=== PATIENT | female | born 1965 | race Caucasian/White ===

== ENCOUNTER 2020-09-24 14:50 | Outpatient (REF) | payer OTHER, SELFPAY ==
[2020-09-25 00:02] LABS: ALT 21 U/L (14-59); AST 15 U/L (15-37); Albumin 4.1 g/dL (3.4-5.0); Alkaline Phosphatase 65 U/L (46-116); Anion Gap 10.4 mmol/L (3-11); BUN 14 mg/dL (7-18); Bilirubin, Total 0.3 mg/dL (0.2-1.0); CO2 26.6 mmol/L (21.0-32.0); CREATININE 0.78 mg/dL (0.55-1.02); Calcium 8.9 mg/dL (8.5-10.1); Calculated LDL 147 mg/dL (<100); Chloride 105 mmol/L (98-107); Cholesterol 227 mg/dL (<200); Glucose 67 mg/dL (74-106); HDL Cholesterol 66 mg/dL (40-60); Magnesium 2.2 mg/dL (1.8-2.4); Potassium 3.9 mmol/L (3.5-5.1); Sodium 142 mmol/L (136-145); TSH (W/Ref FT4) 0.71 uIU/mL (0.36-3.74); Triglyceride 70 mg/dL (<150); Vitamin B12 550 pg/mL (193-986)
== END 2020-09-24 15:10 ==
LOC: NCHCN 14:50
PROVIDERS: PCP Family Medicine; Visit Provider Nurse Practitioner Family
DX: R25.2 Cramp and spasm (principal); Z00.00 Encounter for general adult medical examination without abnormal findings; Z12.11 Encounter for screening for malignant neoplasm of colon; Z12.12 Encounter for screening for malignant neoplasm of rectum
CPT/HCPCS: 80053; 80061; 82607; 83735; 84443

== ENCOUNTER 2021-08-05 10:27 | Outpatient (REF) | payer OTHER, SELFPAY ==
[2021-08-05 20:59] LABS: Abs Immature Grans 0.01 10^3/uL (0.0-0.06); Absolute Basophil Count 0.04 10^3/uL (0.0-0.2); Absolute Eosinophil Count 0.05 10^3/uL (0.0-0.7); Absolute Lymphocyte Count 2.17 10^3/uL (1.2-3.4); Absolute Monocyte Count 0.55 10^3/uL (0.1-0.8); Absolute Neutrophil Count 4.26 10^3/uL (1.2-6.7); Basophils % 0.6; Eosinophils % 0.7; HCT 45.6 % (36.0-46.0); HGB 14.7 g/dL (11.2-15.7); Immature Grans % 0.1; Lymphocytes % 30.6; MCHC 32.2 % (32.0-36.0); MCV 93.1 fL (80-95); Monocytes % 7.8; Neutrophils % 60.2; Nucleated RBC 0 %; Platelet Count 211 10^3/uL (130-400); RDW 12.4 % (11.7-14.6); WBC 7.08 10^3/uL (4.4-10.8)
[2021-08-05 21:24] LABS: TSH (W/Ref FT4) 0.69 uIU/mL (0.36-3.74)
[2021-08-05 22:17] LABS: Hemoglobin A1C 5.2 % (<5.7)
== END 2021-08-05 10:28 | disposition home or self-care (01) ==
LOC: NCHCN 10:27
PROVIDERS: PCP Family Medicine; Visit Provider Registered Nurse
DX: R53.83 Other fatigue (principal); Z13.1 Encounter for screening for diabetes mellitus; Z83.3 Family history of diabetes mellitus
CPT/HCPCS: 83036; 84443; 85025

== ENCOUNTER 2024-07-03 09:46 | Outpatient (REF) | payer OTHER, SELFPAY ==
[2024-07-03 14:54] LABS: HCT 46.2 % (36.0-46.0); HGB 15.1 g/dL (11.2-15.7); MCH 29.4 pg (27.0-33.0); MCHC 32.7 % (32.0-36.0); MCV 90 fL (80-95); MPV 11.9 fL (8.0-11.0); Platelet Count 210 10^3/uL (130-400); RBC 5.14 10^6/uL (3.93-5.22); RDW 11.8 % (11.7-14.6); RDW-SD 38.8 fL; WBC 5.65 10^3/uL (4.4-10.8)
[2024-07-03 15:48] LABS: ALT 34 U/L (14-59); AST 18 U/L (15-37); Albumin 4.2 g/dL (3.4-5.0); Alkaline Phosphatase 58 U/L (46-116); Anion Gap 7.4 mmol/L (3-11); BUN 11 mg/dL (7-18); Bilirubin, Total 0.51 mg/dL (0.2-1.0); CO2 29.6 mmol/L (21.0-32.0); CREATININE 0.9 mg/dL (0.55-1.02); Calcium 9.9 mg/dL (8.5-10.1); Calculated LDL 109 mg/dL (<100); Chloride 106 mmol/L (98-107); Cholesterol 190 mg/dL (<200); Glucose 82 mg/dL (74-106); HDL Cholesterol 71 mg/dL (40-60); Potassium 4.4 mmol/L (3.5-5.1); Sodium 143 mmol/L (136-145); Total Protein 7.7 g/dL (6.4-8.2); Triglyceride 51 mg/dL (<150)
[2024-07-04 10:22] LABS: HIV-1/2 Ag & Ab Screen Negative (Negative)
== END 2024-07-03 09:47 | disposition home or self-care (01) ==
LOC: NCHCN 09:46
PROVIDERS: PCP Family Medicine; Visit Provider Family Medicine
DX: Z00.00 Encounter for general adult medical examination without abnormal findings (principal); R53.83 Other fatigue; Z20.6 Contact with and (suspected) exposure to human immunodeficiency virus [HIV]; E78.89 Other lipoprotein metabolism disorders
CPT/HCPCS: 80053; 80061; 85027; 87389